=== PATIENT | female | born 1945 | race Caucasian/White ===

== ENCOUNTER 2016-03-09 12:05 | Emergency (ER) | payer MEDICARE ==
[2016-03-09 12:13] VITALS: TEMP 99; BMI 23.0
--- NOTE | 2016-03-09 12:56 | DIRPT ---
CLINICAL DATA: Tripped and fell in bedroom this morning EXAM: CT HEAD WITHOUT CONTRAST TECHNIQUE: Contiguous axial images were obtained from the base of the skull through the vertex without intravenous contrast. COMPARISON: 08/30/2005 FINDINGS: No skull fracture is noted. No intracranial hemorrhage, mass effect or midline shift. Paranasal sinuses and mastoid air cells are unremarkable. Mild atherosclerotic calcifications of carotid siphon. No acute cortical infarction. No mass lesion is noted on this unenhanced scan. The saravia and white-matter differentiation is preserved. Mild cerebral atrophy. Minimal periventricular chronic white matter disease. There is scalp swelling and subcutaneous stranding in right frontal region. IMPRESSION: No acute intracranial abnormality. Mild cerebral atrophy. Minimal periventricular chronic white matter disease. Scalp swelling and subcutaneous stranding in right frontal region. Electronically Signed By: Saul Whatley M.D. On: 03/09/2016 12:53
--- NOTE | 2016-03-09 13:29 | DIRPT ---
CLINICAL DATA: Pain following fall EXAM: RIGHT SHOULDER - 2+ VIEW COMPARISON: Right shoulder radiographs January 14, 2015 and right shoulder MRI April 06, 2015 FINDINGS: Frontal, Y scapular, and axillary images were obtained. There is evidence of an old fracture along the greater tuberosity of the proximal right humerus with remodeling. There is no acute fracture or dislocation. Calcification is noted superior to the lateral right humeral head, likely indicative of calcific tendinosis. There is stable scarring in the visualized right upper lobe/apex region. IMPRESSION: Old trauma with remodeling in the greater tuberosity region of the proximal right humerus. No acute fracture or dislocation. No appreciable joint space narrowing. Probable calcific tendinosis in the lateral rotator cuff region. Scarring right upper lobe/ apex region. Electronically Signed By: Rizwan Blanco III, M.D. On: 03/09/2016 13:26
[2016-03-09] MEDS ORDERED: IBUPROFEN 600 MG TAB PO ONE (13:43)
[2016-03-09] MEDS ORDERED: OXYCODONE HCL 5 MG TABLET PO ONE (13:43)
--- NOTE | 2016-03-09 13:49 | EDPRACDOC ---
- General Chief Complaint: Fall Stated Complaint: FALL Time Seen by Provider: 03/09/16 13:18 Information Source: Patient - History of Present Illness Onset: today HPI: PT PRESENTS TODAY VIA EMS FOR MECHANICAL FALL. PT STATES THAT SHE TRIPPED OVER AT CORD AT HOME, STRIKING HER HEAD AND RIGHT SHOULDER. DENIES LOC. PT NOT ANTI-COAGULATED. NO APPARENT DISTRESS. CURRENTLY A/O X 4 WITH SKIN P/W/D. Pain Severity: Reports: Moderate Injuries/Pain Location: Reports: head, upper extremity Reason for Fall: Reports: tripped Loss of Consciousness: no loss of consciousness Modifying Factors: improves with: movement Associated Symptoms (Fall): Reports: denies symptoms Allergies/Adverse Reactions: Allergies codeine [Codeine] Allergy (Verified 03/09/16 12:26) Unknown/See Comments PER PT BLISTERS IN MOUTH Home Medications: Ambulatory Orders Lamotrigine [Lamictal] 200 mg PO QAM 01/14/15 Paroxetine HCl [Paxil] 20 mg PO DAILY 01/14/15 Hydrocodone Bit/Acetaminophen [[place]man 5-325 Tablet] 1 each PO Q4H #15 tab ED Past Medical History - History Reviewed Yes Nurses notes reviewed and agree except as marked - Patient Medical History Respiratory History: Reports: Pneumonia GI/ History: Reports: Kidney Stones Psychological History: Reports: Depression, Anxiety Systemic History: Reports: Anemia (with ). Denies: Cancer Surgical History: Reports: Appendectomy, Cholecystectomy. Denies: Tonsillectomy /Adnoidectomy - Family Medical History Reports: Stroke (Father) - Social Medical History Smoking Status: Former smoker EDM Review of Systems - Review of Systems ROS Negative Except as Marked: Yes All systems reviewed and were negative except as marked Constitutional: No Symptoms Reported Eyes: No Symptoms Reported Ears: No Symptoms Reported Throat: No Symptoms Reported Nose: No Symptoms Reported Respiratory: No Symptoms Reported Cardiovascular: No Symptoms Reported Gastrointestinal: No Symptoms Reported Neurological: No Symptoms Reported Musculoskeletal: Shoulder Integumentary: Bruising - Physical Exam Constitutional: Alert (Awake), No apparent distress Oriented to: Time, Person, Place Last recorded Vital Signs: Last Vital Signs Temp 99.0 F 03/09/16 12:12 Pulse 88 03/09/16 12:12 Resp 20 03/09/16 12:12 BP 159/76 03/09/16 12:12 Pulse Ox 94 03/09/16 12:12 Oxygen Pulse Oxygen Saturation 94 O2 Device Room Air Oxygen Flow Rate Fraction of Inspired Oxygen ( FIO2) - HEENT Head: Other (MODERATE HEMATOMA W/OUT APPARENT DEFORMITY TO RIGHT FOREHEAD) Eye Exam: Normal Neck: Normal, Denies Pain, Midline - Respiratory/Cardiovascular Respiratory: Normal - CTA Cardiovascular: Normal - GI Palpation: Normal Tenderness: Non tender - Musculoskeletal Back: Normal Extremities: Other (NO APPARENT DEFORMITY TO RIGHT SHOULDER, BUT PT STATES MODERATE PAIN WITH ROM; DISTAL PMS INTACT;) - Integumentary Skin: Normal Lymphatics: Normal - Neurologic Cerebellar: Normal Mood Description: Normal Thought: Coherent Perception: Normal ED Injury/Fall Exam - Physical Exam Head Injury: contusions, swelling Extremity Exam: pelvis stable, pain with movement Skin: Normal - Sa[place] Coma Score Best Eye Response ([place]): (4) open spontaneously Best Verbal Response ([place]): (5) oriented Best Motor Response ([place]): (6) obeys commands Saulo Total: 15 Decision Time to Discharge: 13:51 - Departure Disposition: Home Condition: Good Final Diagnosis: Accidental fall Instructions: RICE: Routine Care for Injuries Education/Counseling Given To: Patient, Family Member Education/Counseling Given Regarding: Diagnosis, Treatment, Follow Up Referrals: Calderon Benavides MD [Primary Care Provider] - One Week Prescriptions: New Hydrocodone Bit/Acetaminophen [[place]man 5-325 Tablet] 1 each PO Q4H #15 tab No Action Paroxetine HCl [Paxil] 20 mg PO DAILY Lamotrigine [Lamictal] 200 mg PO QAM Additional Instructions: ICE TO THE FOREHEAD TO HELP WITH SWELLING. IF PAIN TO THE SHOULDER PERSISTS, FOLLOW UP WITH PCP FOR POSSIBLE NEED OF OUTPATIENT MRI.
--- NOTE | 2016-03-09 14:25 | DIRPT ---
CLINICAL DATA: Neck pain status post fall. EXAM: CERVICAL SPINE - COMPLETE 4+ VIEW COMPARISON: None. FINDINGS: There is no evidence of cervical spine fracture or prevertebral soft tissue swelling. There is mild straightening of the cervical lordosis, likely degenerative. There are multilevel osteoarthritic changes worse in the lower cervical spine with bilateral neural foraminal narrowing at C4-C5 and C5-C6. Limited visualization of the lungs demonstrates extensive coarsening of the interstitial markings and subpleural thickening. IMPRESSION: No evidence of fracture or subluxation of the cervical spine. Multilevel osteoarthritic changes of the cervical spine. Advanced chronic interstitial changes of the visualized lung apices, and subpleural thickening. Electronically Signed By: Martinez Yusuf M.D. On: 03/09/2016 14:23
[2016-03-09 14:57] VITALS: BP 164/74; PULSE 84
== END 2016-03-09 14:47 | disposition home or self-care (01) ==
LOC: EDMC 12:05
DX: M25.511 Pain in right shoulder (principal); S00.83XA Contusion of other part of head, initial encounter; W01.0XXA Fall on same level from slipping, tripping and stumbling without subsequent striking against object, initial encounter
CPT/HCPCS: 70450; 72050; 73030; 99283; A9270; J3490